=== PATIENT | female | born 2000 | race American Indian/Alaskan Native ===

== ENCOUNTER 2020-07-01 01:47 | Emergency (ER) | payer SELFPAY ==
[2020-07-01] MEDS ORDERED: predniSONE 50 MG TAB PO ONE (02:28)
[2020-07-01] MEDS ORDERED: IPRATROPIUM/ALBUTEROL SULFATE 3 ML AMPUL.NEB IH ONE (02:28)
[2020-07-01] MEDS ORDERED: methylPREDNISolone Sod Succinate 125 MG/2 ML INJ IM ONE (02:30)
[2020-07-01] MEDS ORDERED: ALBUTEROL 2.5 MG/3 ML NEBU IH ONE (02:30)
[2020-07-01] MEDS ORDERED: methylPREDNISolone Sod Succinate 125 MG/2 ML INJ IV ONE (02:37)
--- NOTE | 2020-07-01 02:41 | Emergency Department Report ---
ED Shortness of Breath HPI - General Chief Complaint: Chest Pain Stated Complaint: MOUSTAPHA Time Seen by Provider: 07/01/20 02:36 Source: patient Mode of arrival: Ambulatory Limitations: No Limitations - History of Present Illness Initial Comments: Patient is a 20-year-old female that presents emergency room with complaints of shortness of breath and chest pain and asthma attack. 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 Patient states that her symptoms started at 8 PM on June 30, 2020. Patient states that her asthma is been stable for 2 years. Patient states she does not have an inhaler at all. Patient states he used to use Ventolin as needed. Patient states that her shortness of breath is better with rest and worse with exertion. Patient states talking gets out of breath. Patient states her chest pain is only with deep b reath. Patient denies fever and chills. Patient complains of a dry cough. Patient denies nausea and vomiting. Patient denies recent travel. Patient denies recent international travel. Patient denies exposure to the novel coronavirus. Patient denies sick contacts. Patient denies fever and chills. Patient denies diarrhea. Patient denies coming in contact with anybody with symptoms of the novel coronavirus. MD Complaint: shortness of breath, pain with inspiration, "asthma attack" -: Sudden Severity: severe Consistency: constant Improves With: rest, upright position Worsens With: lying flat, exertion, inspiration Known History Of: asthma Associated Symptoms: cough Treatments Prior to Arrival: none - Related Data Home Oxygen Therapy: No Previous Rx's Medication Instructions Recorded Last Taken Type ALBUTEROL NEB's [Proventil 0.083% 2.5 mg IH Q4HR PRN #1 box 07/01/20 Unknown Rx NEBS] Albuterol Mdi (or & Nicu Only) 2 puff IH Q4HR PRN #1 inh 07/01/20 Unknown Rx [ProAir HFA Inhaler] methylPREDNISolone [Medrol 4MG 4 mg PO DAILY 6 Days #1 tab.ds.pk 07/01/20 Unknown Rx DOSEPAK (21 tabs)] Allergies Allergy/AdvReac Type Severity Reaction Status Date / Time No Known Allergies Allergy Unverified 07/01/20 02:20 ED Review of Systems ROS: Stated complaint: MOUSTAPHA Other details as noted in HPI Constitutional: denies: chills, fever Eyes: denies: eye pain, eye discharge, vision change ENT: denies: ear pain, throat pain Respiratory: cough, shortness of breath, SOB with exertion, SOB at rest, wheezing Cardiovascular: denies: chest pain, palpitations Endocrine: no symptoms reported Gastrointestinal: denies: abdominal pain, nausea, diarrhea Genitourinary: denies: urgency, dysuria, discharge Musculoskeletal: denies: back pain, joint swelling, arthralgia Skin: denies: rash, lesions Neurological: denies: headache, weakness, paresthesias Psychiatric: denies: anxiety, depression Hematological/Lymphatic: denies: easy bleeding, easy bruising ED Past Medical Hx - Past Medical History Previous Medical History?: Yes Hx Asthma: Yes - Surgical History Past Surgical History?: No - Family History Family history: no significant - Social History Smoking Status: Never Smoker Substance Use Type: None - Medications Home Medications: Home Medications Medication Instructions Recorded Confirmed Last Taken Type ALBUTEROL NEB's [Proventil 0.083% 2.5 mg IH Q4HR PRN #1 box 07/01/20 Unknown Rx NEBS] Albuterol Mdi (or & Nicu Only) 2 puff IH Q4HR PRN #1 inh 07/01/20 Unknown Rx [ProAir HFA Inhaler] methylPREDNISolone [Medrol 4MG 4 mg PO DAILY 6 Days #1 tab.ds.pk 07/01/20 Unknown Rx DOSEPAK (21 tabs)] ED Physical Exam - General Limitations: No Limitations General appearance: alert, in distress - Head Head exam: Present: atraumatic, normocephalic - Eye Eye exam: Present: normal appearance - ENT ENT exam: Present: mucous membranes moist - Neck Neck exam: Present: normal inspection - Respiratory Respiratory exam: Present: respiratory distress, wheezes, chest wall tenderness, decreased breath sounds - Cardiovascular Cardiovascular Exam: Present: regular rate, normal rhythm. Absent: systolic murmur, diastolic murmur, rubs, gallop - GI/Abdominal GI/Abdominal exam: Present: soft, normal bowel sounds - Extremities Exam Extremities exam: Present: normal inspection - Back Exam Back exam: Present: normal inspection - Neurological Exam Neurological exam: Present: alert, oriented X3 - Psychiatric Psychiatric exam: Present: normal affect, normal mood - Skin Skin exam: Present: warm, dry, intact, normal color. Absent: rash ED Course Vital Signs 07/01/20 07/01/20 02:21 02:55 Temperature 98.1 F Pulse Rate 115 H Pulse Rate [ 96 H Bilateral] Respiratory 20 Rate Respiratory 26 H Rate [Bilateral ] Blood Pressure 115/62 O2 Sat by Pulse 94 Oximetry - Reevaluation(s) Reevaluation #1: Patient states her symptoms have resolved. Patient states feeling much better. Patient's lung sounds are clear. I discussed all results and clinical findings with patient. I discussed plan of care with patient. Patient agrees with plan of care. Patient is stable for discharge. Patient will be discharged home. Patient given discharge instructions. Patient voiced understanding of discharge instructions. 07/01/20 03:22 ED Medical Decision Making - Medical Decision Making Patient is a 20-year-old female that presents emergency room with complaint shortness of breath and asthmatic sounds. Patient states she was breathing in fumes from acrylic nails while at work and it exacerbated her asthma. Patient does not have an inhaler. Patient has required inhaler for 2 years. No distress. Patient given DuoNeb and Solu-Medrol. Patient responded well to treatment. Patient symptoms resolved after treatment. Patient states she was feeling much better after the treatment. Patient had a chest x-ray was negative for acute finding. Patient be discharged home with Medrol Dosepak and nebulized albuterol. - Differential Diagnosis Asthma exacerbation, shortness of breath, chest pain, Critical care attestation.: If time is entered above; I have spent that time in minutes in the direct care of this critically ill patient, excluding procedure time. ED Disposition Clinical Impression: Shortness of breath Asthma exacerbation Qualifiers: Asthma severity: severe Asthma persistence: unspecified Qualified Code(s): J45.901 - Unspecified asthma with (acute) exacerbation Disposition: -01 TO HOME OR SELFCARE Is pt being admited?: No Does the pt Need Aspirin: No Condition: Stable Instructions: Asthma, Adult, Shortness of Breath, Adult, [id number], Preventing Asthma Attacks From Outdoor Allergens, Teen Additional Instructions: Patient to follow-up with primary care in 2 to 3 days. Patient to rest. Patient to increase water. Patient to avoid strenuous exercise or heavy lifting until cleared by primary care.. Patient to take Tylenol or ibuprofen as needed for pain. Patient to take meds as directed. Patient to return to the ER if condition worsens, changes or new symptoms arise. Prescriptions: methylPREDNISolone [Medrol 4MG DOSEPAK (21 tabs)] 4 mg PO DAILY 6 Days #1 tab.ds.pk Albuterol Mdi (or & Nicu Only) [ProAir HFA Inhaler] 2 puff IH Q4HR PRN #1 inh PRN Reason: Shortness Of Breath ALBUTEROL NEB's [Proventil 0.083% NEBS] 2.5 mg IH Q4HR PRN #1 box PRN Reason: Wheezing Referrals: PRIMARY CARE, [Primary Care Provider] - 2-3 Days Time of Disposition: 03:28 Print Language: TAJIK
--- NOTE | 2020-07-01 03:07 | XRay Report ---
CHEST 1 VIEW 0253 INDICATION / CLINICAL INFORMATION: cough, dyspnea, asthma COMPARISON: None available. FINDINGS: SUPPORT DEVICES: None HEART / MEDIASTINUM: No significant abnormality. LUNGS / PLEURA: No significant pulmonary or pleural abnormality. No pneumothorax. ADDITIONAL FINDINGS: No significant additional findings. IMPRESSION: No significant acute abnormality Signer Name: Faisal Ye MD Signed: 07/01/2020 3:03 AM Workstation Name: [id number]
[2020-07-01 04:13] VITALS: BP 118/75
== END 2020-07-01 03:39 | disposition home or self-care (01) ==
LOC: ED 01:47
DX: J45.901 Unspecified asthma with (acute) exacerbation (principal); R06.02 Shortness of breath; Z79.899 Other long term (current) drug therapy
CPT/HCPCS: 71045; 94640; 96374; 99283; J2930; 94644